=== PATIENT | male | born 1960 | race Caucasian/White ===

== ENCOUNTER 2017-10-15 12:06 | Emergency (ER) | payer OTHER ==
[~2017-10-15] VITALS: Ht 177.8 cm; Wt 82.1 kg
[2017-10-15 12:07] VITALS: Ht 177.8 cm; Wt 82.1 kg
[2017-10-15 15:10] VITALS: BP 128/79
== END 2017-10-15 15:10 | disposition home or self-care (01) ==
LOC: ED 12:06
DX: H10.212 Acute toxic conjunctivitis, left eye (principal); L30.9 Dermatitis, unspecified
CPT/HCPCS: J2270; J7030; Q0162; V2632